=== PATIENT | male | born 1980 | race Hispanic/Latino ===

== ENCOUNTER 2021-01-23 21:15 | Emergency (ER) | payer BC ==
[~2021-01-23] VITALS: Ht 182.9 cm; Wt 113.4 kg
[2021-01-23] MEDS ORDERED: POTASSIUM CHLORIDE 20 MEQ TAB CR PO STA (21:48)
[2021-01-23] MEDS ORDERED: LORAZEPAM INJ 2 MG/ML VIAL ONE (21:58)
[2021-01-23] MEDS ORDERED: POTASSIUM CHLORIDE 20 MEQ TAB CR PO ONE (22:00)
[2021-01-23] MEDS ORDERED: LORAZEPAM INJ 2 MG/ML VIAL IV ONE (22:00)
[2021-01-23] MEDS ORDERED: SODIUM CHLORIDE 0.9% 1000ML 1,000 ML ONE (22:14)
[2021-01-23] MEDS ORDERED: SODIUM CHLORIDE 0.9% 1000ML 1,000 ML IV SCH (22:15)
== END 2021-01-23 22:50 | disposition home or self-care (01) ==
LOC: FSED 21:25
DX: R07.9 Chest pain, unspecified (principal); F17.210 Nicotine dependence, cigarettes, uncomplicated; Z88.1 Allergy status to other antibiotic agents; Z88.0 Allergy status to penicillin; M79.671 Pain in right foot; E87.6 Hypokalemia; I10 Essential (primary) hypertension; F98.8 Other specified behavioral and emotional disorders with onset usually occurring in childhood and adolescence
CPT/HCPCS: 71046; 80053; 81003; 82553; 84484; 85025; 99284; J2060; J7030; 93005